=== PATIENT | female | born 1955 | race Caucasian/White ===

== ENCOUNTER 2023-10-22 12:50 | Outpatient (REF) | payer MEDICARE, SELFPAY | END 2023-10-22 12:51 | disposition home or self-care (01) | LOC: HO.SH 12:50 | PROVIDERS: Visit Provider Family Medicine | DX: Z01.118 Encounter for examination of ears and hearing with other abnormal findings (principal); H93.12 Tinnitus, left ear; H91.93 Unspecified hearing loss, bilateral | CPT/HCPCS: 92557; 92567 ==